=== PATIENT | male | born 1935 | race Caucasian/White ===

== ENCOUNTER → 2017-07-17 | Outpatient (CLI) | payer MEDICARE ==
[~2017-07-17] MED LIST: DICL100G3 TOP; DOCU-416 PO; DOXA1TAB38 PO; FLU IM; HYDR-385 PO; LAN30PT PO; MALOXICAM PO; MELO-205 PO; MELO-207 PO; PER PO; SPIR25TA78 PO; [UNRECOGNIZED DRUG - OTHER] PO; [UNRECOGNIZED DRUG - OTHER] PO
== END ==
LOC: LAB 15:54
PROVIDERS: ATTEND Surgery
DX: D04.22 Carcinoma in situ of skin of left ear and external auricular canal (principal)
CPT/HCPCS: 88305

== ENCOUNTER 2018-03-13 16:03 | Emergency (ER) | payer MEDICARE ==
[~2018-03-13 16:03] MED LIST changes: -OMEP-125 PO
[2018-03-13] MEDS ORDERED: NS(*) 0.9% 1000 ML BAG 1,000 ML IV ONE ×2 (16:12)
[2018-03-13] MEDS ORDERED: ONDANSETRON 4 MG/2 ML VIAL IVP ONE (16:15)
--- NOTE | 2018-03-13 16:15 | ER Report ---
History and Physical Time Seen By MD: 16:13 (JAGJIT BRUSH MD) HPI/ROS CHIEF COMPLAINT: Diarrhea and vomiting HISTORY OF PRESENT ILLNESS: Otherwise healthy 2-year-old male comes emergency Department today with multiple episodes diarrhea started about 2:30 this morning he said several episodes of loose stool nonbloody also he had 2 episodes of emesis both nonbloody and nonbilious. Patient states that for the last day or so easily less in the last 24 hours she did have macaroni and cheese dinner last night has no current abdominal pain but had some cramping associated with the vomiting and the diarrhea patient is a chest pain shortness of breath patient has no REVIEW OF SYSTEMS: Respiratory: No cough, no dyspnea. Cardiovascular: No chest pain, no palpitations. Gastrointestinal: Without abdominal pain Musculoskeletal: No back pain. Remainder of the 14 system rev: Yes (JAGJIT BRUSH MD) Allergies: Coded Allergies: No Known Drug Allergies (Unverified , 03/13/18) Home Meds Active Scripts Meloxicam (MELOXICAM) 15 Mg Tablet, 1 TAB PO QDAY, #90 TAB 3 Refills Prov:SANTOS KING MD 03/23/14 Reported Medications Omeprazole (OMEPRAZOLE) 20 Mg Capsule.dr, 1 CAP PO QDAY, CAP 03/13/18 Spironolactone (SPIRONOLACTONE) 25 Mg Tablet, 12.5 MG PO QDAY, TAB 03/13/18 Discontinued Reported Medications Lansoprazole (PREVACID) 30 Mg Capsule.dr, 30 MG PO HS 01/14/13 Discontinued Scripts Doxazosin Mesylate (DOXAZOSIN MESYLATE) 1 Mg Tablet, 2 MG PO QHS, #90 TAB Prov:FAITH VILLANUEVA APRN [facility] 09/30/14 Reviewed Nurses Notes: Yes Old Medical Records Reviewed: Yes (JAGJIT BRUSH MD) Hx Smoking: No Smoking Status: Former Smoker Exposure to Second Hand Smoke?: No Hx Substance Use Disorder: No 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) (JAGJIT BRUSH MD) Constitutional Vital Sign - Last 24 Hours 03/13/18 03/13/18 03/13/18 03/13/18 16:03 16:12 16:16 16:20 Temp 97.9 Pulse 77 67 Resp 14 B/P (MAP) 140/100 (113) 140/100 Pulse Ox 83 83 O2 Delivery Room Air Room Air O2 Flow Rate 2.0 03/13/18 03/13/18 03/13/18 03/13/18 16:33 16:43 16:48 17:00 Pulse 77 63 B/P (MAP) 163/83 (109) 153/79 (103) Pulse Ox 99 98 O2 Delivery Nasal Cannula Nasal Cannula O2 Flow Rate 2 2 03/13/18 03/13/18 03/13/18 03/13/18 17:18 17:23 17:30 18:05 Pulse 69 73 67 B/P (MAP) 159/84 (109) Pulse Ox 96 93 96 O2 Delivery Nasal Cannula Nasal Cannula Nasal Cannula O2 Flow Rate 2 2 2 03/13/18 03/13/18 03/13/18 03/13/18 18:30 18:35 18:40 18:55 Pulse 62 68 71 B/P (MAP) 159/76 (103) Pulse Ox 93 96 92 O2 Delivery Nasal Cannula Nasal Cannula Nasal Cannula O2 Flow Rate 2 2 2 03/13/18 03/13/18 19:00 19:10 Pulse 64 B/P (MAP) 161/76 (104) Pulse Ox 91 O2 Delivery Room Air Intake and Output 03/13/18 03/13/18 03/14/18 15:00 23:00 07:00 Intake Total 1000 ml Balance 1000 ml (MONSE BALLARD DO) Physical Exam General Appearance: [The patient is alert, has no immediate need for airway protection and no current signs of toxicity.] [ ] Eyes: Pupils equal and round no injection. Respiratory: Chest is non tender, lungs are clear to auscultation. Cardiac: regular rate and rhythm [ ] Gastrointestinal: Abdomen is soft and non tender, no masses, bowel sounds normal. Musculoskeletal: Neck: Neck is supple and non tender. Extremities have full range of motion and are non tender. Skin: No rashes or lesions. [ ] DIFFERENTIAL DIAGNOSIS: After history and physical exam differential diagnosis was considered for enteritis gastroenteritis stomach flu dehydration (JAGJIT BRUSH MD) Medical Decision Making Data Points Result Diagram: 03/13/18 1602 03/13/18 1602 Laboratory Hematology Test 03/13/18 00:00 03/13/18 16:02 Urine Color Yellow Urine Clarity Cloudy Urine pH 7.0 pH (4.8-9.5) Urine Specific [place] 1.030 Urine Protein Negative mg/dL (NEGATIVE) Urine Glucose (UA) Negative mg/dL (NEGATIVE) Urine Ketones Trace mg/dL (NEGATIVE) Urine Blood Negative (NEGATIVE) Urine Nitrite Negative (NEGATIVE) Urine Bilirubin Negative (NEGATIVE) Urine Urobilinogen Negative mg/dL (0.2-1.9) Urine Leukocyte Esterase Negative (NEGATIVE) Urine RBC <1 /HPF (0-2/HPF) Urine WBC None /HPF (0-5/HPF) Urine Squamous Epithelial Cells None /LPF (</=FEW) Urine Amorphous Crystals Few /HPF Urine Bacteria Negative /HPF (NONE-FEW) Urine Mucus None /HPF (NONE-FEW) Red Blood Count 5.03 M/uL (4.00-5.60) Mean Corpuscular Volume 92.6 fL (80.0-96.0) Mean Corpuscular Hemoglobin 31.1 pg (26.0-33.0) Mean Corpuscular Hemoglobin Concent 33.6 g/dL (32.0-36.0) Red Cell Distribution Width 14.7 % (11.5-14.5) Mean Platelet Volume 7.5 fL (7.2-11.1) Neutrophils (%) (Auto) 87.0 % (39.4-72.5) Lymphocytes (%) (Auto) 6.9 % (17.6-49.6) Monocytes (%) (Auto) 5.9 % (4.1-12.4) Eosinophils (%) (Auto) 0.0 % (0.4-6.7) Basophils (%) (Auto) 0.2 % (0.3-1.4) Nucleated RBC Relative Count (auto) 0.1 /100WBC Neutrophils # (Auto) 8.1 K/uL (2.0-7.4) Lymphocytes # (Auto) 0.6 K/uL (1.3-3.6) Monocytes # (Auto) 0.6 K/uL (0.3-1.0) Eosinophils # (Auto) 0.0 K/uL (0.0-0.5) Basophils # (Auto) 0.0 K/uL (0.0-0.1) Nucleated RBC Absolute Count (auto) 0.01 K/uL Sodium Level 128 mmol/L (137-145) Potassium Level 4.5 mmol/L (3.5-5.0) Chloride Level 91 mmol/L (98-107) Carbon Dioxide Level 27 mmol/L (22-30) Blood Urea Nitrogen 15 mg/dl (9-21) Creatinine 1.20 mg/dl (0.66-1.25) Glomerular Filtration Rate Calc 58.0 Random Glucose 152 mg/dl (75-110) Calcium Level 9.1 mg/dl (8.4-10.2) Total Bilirubin 0.9 mg/dl (0.2-1.3) Aspartate Amino Transf (AST/SGOT) 28 U/L (0-35) Alanine Aminotransferase (ALT/SGPT) 24 U/L (0-56) Alkaline Phosphatase 107 U/L (0-126) B-Type Natriuretic Peptide 42 pg/ml (0-100) Total Protein 7.0 g/dl (6.3-8.2) Albumin 4.3 g/dl (3.5-5.0) Lipase 86 U/L (23-300) Chemistry Test 03/13/18 00:00 03/13/18 16:02 Urine Color Yellow Urine Clarity Cloudy Urine pH 7.0 pH (4.8-9.5) Urine Specific [place] 1.030 Urine Protein Negative mg/dL (NEGATIVE) Urine Glucose (UA) Negative mg/dL (NEGATIVE) Urine Ketones Trace mg/dL (NEGATIVE) Urine Blood Negative (NEGATIVE) Urine Nitrite Negative (NEGATIVE) Urine Bilirubin Negative (NEGATIVE) Urine Urobilinogen Negative mg/dL (0.2-1.9) Urine Leukocyte Esterase Negative (NEGATIVE) Urine RBC <1 /HPF (0-2/HPF) Urine WBC None /HPF (0-5/HPF) Urine Squamous Epithelial Cells None /LPF (</=FEW) Urine Amorphous Crystals Few /HPF Urine Bacteria Negative /HPF (NONE-FEW) Urine Mucus None /HPF (NONE-FEW) White Blood Count 9.4 k/uL (4.5-11.0) Red Blood Count 5.03 M/uL (4.00-5.60) Hemoglobin 15.6 g/dL (14.0-18.0) Hematocrit 46.6 % (42.0-52.0) Mean Corpuscular Volume 92.6 fL (80.0-96.0) Mean Corpuscular Hemoglobin 31.1 pg (26.0-33.0) Mean Corpuscular Hemoglobin Concent 33.6 g/dL (32.0-36.0) Red Cell Distribution Width 14.7 % (11.5-14.5) Platelet Count 278 K/uL (150-450) Mean Platelet Volume 7.5 fL (7.2-11.1) Neutrophils (%) (Auto) 87.0 % (39.4-72.5) Lymphocytes (%) (Auto) 6.9 % (17.6-49.6) Monocytes (%) (Auto) 5.9 % (4.1-12.4) Eosinophils (%) (Auto) 0.0 % (0.4-6.7) Basophils (%) (Auto) 0.2 % (0.3-1.4) Nucleated RBC Relative Count (auto) 0.1 /100WBC Neutrophils # (Auto) 8.1 K/uL (2.0-7.4) Lymphocytes # (Auto) 0.6 K/uL (1.3-3.6) Monocytes # (Auto) 0.6 K/uL (0.3-1.0) Eosinophils # (Auto) 0.0 K/uL (0.0-0.5) Basophils # (Auto) 0.0 K/uL (0.0-0.1) Nucleated RBC Absolute Count (auto) 0.01 K/uL Glomerular Filtration Rate Calc 58.0 Calcium Level 9.1 mg/dl (8.4-10.2) Total Bilirubin 0.9 mg/dl (0.2-1.3) Aspartate Amino Transf (AST/SGOT) 28 U/L (0-35) Alanine Aminotransferase (ALT/SGPT) 24 U/L (0-56) Alkaline Phosphatase 107 U/L (0-126) B-Type Natriuretic Peptide 42 pg/ml (0-100) Total Protein 7.0 g/dl (6.3-8.2) Albumin 4.3 g/dl (3.5-5.0) Lipase 86 U/L (23-300) Urinalysis Test 03/13/18 00:00 Urine Color Yellow Urine Clarity Cloudy Urine pH 7.0 pH (4.8-9.5) Urine Specific [place] 1.030 Urine Protein Negative mg/dL (NEGATIVE) Urine Glucose (UA) Negative mg/dL (NEGATIVE) Urine Ketones Trace mg/dL (NEGATIVE) Urine Blood Negative (NEGATIVE) Urine Nitrite Negative (NEGATIVE) Urine Bilirubin Negative (NEGATIVE) Urine Urobilinogen Negative mg/dL (0.2-1.9) Urine Leukocyte Esterase Negative (NEGATIVE) Urine RBC <1 /HPF (0-2/HPF) Urine WBC None /HPF (0-5/HPF) Urine Squamous Epithelial Cells None /LPF (</=FEW) Urine Amorphous Crystals Few /HPF Urine Bacteria Negative /HPF (NONE-FEW) Urine Mucus None /HPF (NONE-FEW) (MONSE BALLARD DO) EKG/Imaging Imaging Results: CT scan of the abdomen and pelvis was obtained. The results of the study are ABDOMEN/PELVIS WITH CONTRAST History: 82-year-old male with abdominal pain.. Technique: CT images were obtained through the abdomen and pelvis with intravenous contrast using: Isovue-370 75 mls. Coronal and sagittal reformations were then created. One of the following dose optimization techniques was utilized in the performance of this exam: Automated exposure control; adjustment of the mA and/or kV according to the patient's size; or use of an iterative reconstruction technique. Specific details can be referenced in the facility's radiology CT exam operational policy. Comparison study: None Findings: Lung bases: There is mild passive atelectasis. Hepatobiliary: There is no finding of focal lesion in the liver to suggest metastatic disease. The gallbladder is unremarkable and there is no gallstone disease or biliary ductal dilatation. There is no hepatic or portal vein thrombosis. Spleen: Negative. Adrenals: Negative Pancreas: There is fatty infiltration of the pancreas but there is no ductal dilatation and there is no pancreatic mass or calculus.. Kidneys/genitourinary/retroperitoneum: There are no findings of hydronephrosis or nephrolithiasis. There is no retroperitoneal lymphadenopathy. Bowel/peritoneum/mesentery: There is a normal appendix in the right lower quadrant. There are scattered diverticula throughout the colon particularly in the sigmoid colon, but there are no findings of diverticulitis. There are no dilated loops of small bowel. Pelvic/genital urinary: The bladder is unremarkable. The prostate is mildly enlarged. There is no inguinal hernia. Vessels: There is diffuse aphthous chronic calcification.. Lymph node: There are no findings of lymphadenopathy. Body wall/bones: There is no vertebral body compression fracture. IMPRESSION: 1. No findings to explain this patient's abdominal pain. 2. Normal gallbladder and kidneys. 3. Mild BPH. 4. Diverticulosis throughout the colon and particularly in the sigmoid colon but there are no findings of diverticulitis. The study was read by the radiologist. I viewed the images myself on the PACS system. (MONSE BALLARD DO) ED Course/Re-evaluation ED Course ED clinical course medical decision making 82-year-old male comes in with less than 12 hours of diarrhea and several emesis patient labs are normal chest x-ray and KUB were also normal gait Amenta maximally and 2 L of fluid and feels significantly better no obvious overt signs of clinical pathology noted other than a most likely a viral gastroenteritis with treated accordingly give him by mouth antibiotic or by mouth antibiotics and have him follow primary care Decision to Disposition Date: Mar 13, 2018 Decision to Disposition Time: 17:29 (JAGJIT BRUSH MD) Clinical Indication for ER IV: Hydration, IV Access ED Course Care was assumed at shift change from Dr. Brush with a diagnostic CT pending of abdomen and pelvis. Patient with acute abdominal pain, vomiting and diarrhea. The CT scan was unremarkable for any pathology. Results are discussed with the patient. He is advised a clear liquid diet, to rest his bowels for several days. He's advised to advance to the brat diet. He is offered medication Zofran to control his nausea and vomiting. He is advised ibuprofen and Tylenol for pain relief. Patient's advised to follow-up with primary care if unimproved in 3-5 days. Decision to Disposition Date: Mar 13, 2018 Decision to Disposition Time: 18:40 (MONSE BALLARD DO) Depart Departure Latest Vital Signs Vital Signs Date Time Temp Pulse Resp B/P (MAP) Pulse Ox O2 Delivery O2 Flow Rate FiO2 03/13/18 19:10 64 91 Room Air 03/13/18 19:00 161/76 (104) 03/13/18 18:55 2 03/13/18 16:16 97.9 14 (MONSE BALLARD DO) Impression: Primary Impression: Enteritis Condition: Improved Disposition: HOME OR SELF-CARE Referrals: FAITH VILLANUEVA APRN [facility] Patient Instructions: Acute Diarrhea (ED), Clear Liquid Diet (ED) Additional Instructions: Use Tylenol and ibuprofen as needed for pain relief The CAT scan of your abdomen and pelvis did not show any pathology to explain the diarrhea Follow clear liquid diet for 24-48 hours, then advance to [place] diet, bananas, rice, applesauce and toast Follow-up with your primary care if unimproved in 3-5 days Return to the ER for any worsening JAGJIT BRUSH MD Mar 13, 2018 16:15 MONSE BALLARD DO Mar 13, 2018 18:41
[2018-03-13] MEDS ORDERED: SPIR25TA80 PO (16:16)
[2018-03-13] MEDS ORDERED: OMEP-125 PO (16:19)
[2018-03-13 16:21] LABS: PLATELET COUNT, AUTOMATED 278 K/uL (150-450)
--- NOTE | 2018-03-13 16:50 | RADIOLOGY IMAGING REPORT ---
FACILITY: [facility] - [place] PATIENT NAME: Gabriel Soto : 1935 MR: [id number] V: [id number] EXAM DATE: ORDERING PHYSICIAN: JAGJIT BRUSH TECHNOLOGIST: Location: [facility] Patient: Gabriel Soto : 1935 Visit/Account:[id number] Date of Sevice: 03/13/2018 Exam type: KUB SINGLE VIEW ABDOMEN History: Abdomen pain and diarrhea Comparison: None. Findings: Bowel gas pattern is nonspecific. There is no gross evidence of organomegaly or pathologic intra-abd ominal calcifications. There is a dextroconvex scoliosis of lumbar spine with extensive spondylotic changes. Mild degenerative changes of both hip joints also noted IMPRESSION: 1. Nonspecific bowel gas pattern Report Dictated By: Miya Melton MD at 03/13/2018 4:45 PM Report E-Signed By: Miya Melton MD at 03/13/2018 4:47 PM WSN:[email or web address]
--- NOTE | 2018-03-13 16:50 | RADIOLOGY IMAGING REPORT ---
FACILITY: [facility] PATIENT NAME: Gabriel Soto : 1935 MR: [id number] V: [id number] EXAM DATE: ORDERING PHYSICIAN: JAGJIT BRUSH TECHNOLOGIST: Location: [facility] Patient: Gabriel Soto : 1935 Visit/Account:[id number] Date of Sevice: 03/13/2018 Exam type: CHEST PA AND LAT History: Abdomen pain and diarrhea Comparison: July 19, 2016. Findings: Again noted is hyperinflation of the lung toscano. There is no evidence of focal infiltrates, pleural effusions or pulmonary edema. The cardiac silhouette is normal in size. The trachea is midline. IMPRESSION: 1. There is hyperinflation of the lung toscano although no evidence of acute pulmonary consolidation Report Dictated By: Miya Melton MD at 03/13/2018 4:44 PM Report E-Signed By: Miya Melton MD at 03/13/2018 4:45 PM WSN:[id number]
[2018-03-13] MEDS ORDERED: IOPAMIDOL 76% 75 ML INFUS BTL 75 ML ONE (17:45)
--- NOTE | 2018-03-13 18:31 | RADIOLOGY IMAGING REPORT ---
FACILITY: [facility] - [place] PATIENT NAME: Gabriel Soto : 1935 MR: [id number] V: [id number] EXAM DATE: ORDERING PHYSICIAN: JAGJIT BRUSH TECHNOLOGIST: Location: [facility] - [place] Patient: Gabriel Soto : 1935 Visit/Account:[id number] Date of Sevice: 03/13/2018 ABDOMEN/PELVIS WITH CONTRAST History: 82-year-old male with abdominal pain.. Technique: CT images were obtained through the abdomen and pelvis with intravenous contrast using: I sovue-370 75 mls. Coronal and sagittal reformations were then created. One of the following dose optimization techniques was utilized in the performance of this exam: Autom ated exposure control; adjustment of the mA and/or kV according to the patient's size; or use of an i terative reconstruction technique. Specific details can be referenced in the facility's radiology C T exam operational policy. Comparison study: None Findings: Lung bases: There is mild passive atelectasis. Hepatobiliary: There is no finding of focal lesion in the liver to suggest metastatic disease. The ga llbladder is unremarkable and there is no gallstone disease or biliary ductal dilatation. There is no hepatic or portal vein thrombosis. Spleen: Negative. Adrenals: Negative Pancreas: There is fatty infiltration of the pancreas but there is no ductal dilatation and there is no pancreatic mass or calculus.. Kidneys/genitourinary/retroperitoneum: There are no findings of hydronephrosis or nephrolithiasis. Th ere is no retroperitoneal lymphadenopathy. Bowel/peritoneum/mesentery: There is a normal appendix in the right lower quadrant. There are scatter ed diverticula throughout the colon particularly in the sigmoid colon, but there are no findings of d iverticulitis. There are no dilated loops of small bowel. Pelvic/genital urinary: The bladder is unremarkable. The prostate is mildly enlarged. There is no ing uinal hernia. Vessels: There is diffuse aphthous chronic calcification.. Lymph node: There are no findings of lymphadenopathy. Body wall/bones: There is no vertebral body compression fracture. IMPRESSION: 1. No findings to explain this patient's abdominal pain. 2. Normal gallbladder and kidneys. 3. Mild BPH. 4. Diverticulosis throughout the colon and particularly in the sigmoid colon but there are no finding s of diverticulitis. Report Dictated By: Benigno Viera MD at 03/13/2018 6:18 PM Report E-Signed By: Benigno Viera MD at 03/13/2018 6:27 PM WSN:[id number]
[2018-03-13 19:00] VITALS: BP 161/76
== END 2018-03-13 19:41 | disposition home or self-care (01) ==
LOC: ER 16:06
DX: K52.9 Noninfective gastroenteritis and colitis, unspecified (principal)
CPT/HCPCS: 71046; 74018; 74177; 81001; 83690; 83880; 85025; 96361; 96374; 99284; J2405; J7030; Q9967; 82040; 82247; 82310; 82374; 82435; 82565; 82947; 84075; 84132; 84155; 84295; 84450; 84460; 84520

== ENCOUNTER → 2018-03-13 | Outpatient (CLI) | payer MEDICARE ==
[~2018-03-13] MED LIST changes: +OMEP-125 PO; -SPIR25TA78 PO; +SPIR25TA80 PO
== END ==
LOC: AMB 15:46
PROVIDERS: ATTEND Nurse Practitioner
DX: R53.1 Weakness (principal); R10.30 Lower abdominal pain, unspecified; R19.7 Diarrhea, unspecified
CPT/HCPCS: A0425; A0427

== ENCOUNTER 2018-04-25 16:41 | Emergency (ER) | payer MEDICARE ==
[~2018-04-25 16:41] MED LIST changes: +OMEP-125 PO
--- NOTE | 2018-04-25 16:47 | ER Report ---
History and Physical Time Seen By MD: 16:47 HPI/ROS CHIEF COMPLAINT: Abdominal pain, diarrhea HISTORY OF PRESENT ILLNESS: 82-year-old male patient presents to the emergency room with complaint of abdominal pain with diarrhea. Patient states that he has had this for the past several weeks. He states today the pain became worse. Patient states that the pain seems to more on the right side. He states that he's been having diarrhea daily for the past several weeks up to 2 months. He denies having any fevers, chills, nausea or vomiting. Patient states that he often times have to fountain to the bathroom. He states that he is seen for this in the past. He states that he is not improved since then. REVIEW OF SYSTEMS: Respiratory: No cough, no dyspnea. Cardiovascular: No chest pain, no palpitations. Gastrointestinal: As noted above Musculoskeletal: No back pain. Allergies: Coded Allergies: No Known Drug Allergies (Unverified , 04/25/18) Home Meds Active Scripts Ciprofloxacin Hcl 500 Mg Tab (CIPRO 500 MG TAB) 500 Mg Tablet, 500 MG PO BID for 5 Days, #10 TAB Prov:JERILYN EDUARDO 04/25/18 Meloxicam (MELOXICAM) 15 Mg Tablet, 1 TAB PO QDAY, #90 TAB 3 Refills Prov:SANTOS KING MD 03/23/14 Reported Medications Spironolactone (SPIRONOLACTONE) 25 Mg Tablet, 50 MG PO QDAY, TAB 03/13/18 Discontinued Reported Medications Omeprazole (OMEPRAZOLE) 20 Mg Capsule.dr, 1 CAP PO QDAY, CAP 03/13/18 Past Medical/Surgical History Patient has a past medical history of hypertension, home oxygen, emphysema, COPD, reflux, prostate problems, arthritis, fractures, alcohol use. Patient has a surgical history of back surgery, leg surgery, shoulder surgery tonsillectomy area Patient has a family medical history of CAD, stroke. 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 B/P (MAP) 128/85 (99) Pulse Ox 91 04/25/18 04/25/18 04/25/18 04/25/18 17:16 17:21 17:26 17:30 Pulse ??? 57 53 Resp 24 B/P (MAP) 121/85 (97) Pulse Ox 96 98 04/25/18 04/25/18 04/25/18 04/25/18 17:31 17:36 17:41 17:46 Pulse 57 ? Pulse Ox 97 98 04/25/18 04/25/18 04/25/18 04/25/18 17:51 17:56 18:00 18:01 Pulse ??? 63 65 Resp 9 12 B/P (MAP) 127/92 (104) Pulse Ox 98 99 04/25/18 04/25/18 04/25/18 04/25/18 18:06 18:11 18:16 18:21 Pulse 62 65 69 68 Resp 24 13 24 17 Pulse Ox 99 99 97 99 04/25/18 04/25/18 04/25/18 18:26 18:36 19:20 Pulse 67 69 Resp 27 25 Pulse Ox 97 90 O2 Flow Rate 4.0 Physical Exam General Appearance: The patient is alert, has no immediate need for airway protection and no current signs of toxicity. Respiratory: Chest is non tender, lungs are clear to auscultation. Cardiac: regular rate and rhythm Gastrointestinal: Abdomen is soft and non tender, no masses, bowel sounds normal. Musculoskeletal: Neck: Neck is supple and non tender. Extremities have full range of motion and are non tender. Skin: No rashes or lesions. DIFFERENTIAL DIAGNOSIS: After history and physical exam differential diagnosis was considered for viral enteritis, infectious enteritis, gas pains. Medical Decision Making Data Points Result Diagram: 04/25/18 1712 04/25/18 171 Laboratory Hematology Test 04/25/18 17:12 Red Blood Count 5.54 M/uL (4.00-5.60) Mean Corpuscular Volume 92.7 fL (80.0-96.0) Mean Corpuscular Hemoglobin 30.6 pg (26.0-33.0) Mean Corpuscular Hemoglobin Concent 33.0 g/dL (32.0-36.0) Red Cell Distribution Width 14.5 % (11.5-14.5) Mean Platelet Volume 7.7 fL (7.2-11.1) Neutrophils (%) (Auto) 76.4 % (39.4-72.5) Lymphocytes (%) (Auto) 13.7 % (17.6-49.6) Monocytes (%) (Auto) 7.6 % (4.1-12.4) Eosinophils (%) (Auto) 0.3 % (0.4-6.7) Basophils (%) (Auto) 2.0 % (0.3-1.4) Nucleated RBC Relative Count (auto) 0.1 /100WBC Neutrophils # (Auto) 4.7 K/uL (2.0-7.4) Lymphocytes # (Auto) 0.8 K/uL (1.3-3.6) Monocytes # (Auto) 0.5 K/uL (0.3-1.0) Eosinophils # (Auto) 0.0 K/uL (0.0-0.5) Basophils # (Auto) 0.1 K/uL (0.0-0.1) Nucleated RBC Absolute Count (auto) 0.01 K/uL Sodium Level 137 mmol/L (137-145) Potassium Level 3.9 mmol/L (3.5-5.0) Chloride Level 100 mmol/L (98-107) Carbon Dioxide Level 26 mmol/L (22-30) Blood Urea Nitrogen 20 mg/dl (9-21) Creatinine 1.30 mg/dl (0.66-1.25) Glomerular Filtration Rate Calc 52.9 Random Glucose 121 mg/dl (75-110) Calcium Level 9.5 mg/dl (8.4-10.2) Total Bilirubin 0.9 mg/dl (0.2-1.3) Aspartate Amino Transf (AST/SGOT) 25 U/L (0-35) Alanine Aminotransferase (ALT/SGPT) 23 U/L (0-56) Alkaline Phosphatase 110 U/L (0-126) Total Protein 7.5 g/dl (6.3-8.2) Albumin 4.6 g/dl (3.5-5.0) Amylase Level 43 U/L (0-110) Lipase 41 U/L (23-300) Helicobacter pylori IgG Antibody Negative (NEGATIVE) Chemistry Test 04/25/18 17:12 White Blood Count 6.1 k/uL (4.5-11.0) Red Blood Count 5.54 M/uL (4.00-5.60) Hemoglobin 16.9 g/dL (14.0-18.0) Hematocrit 51.4 % (42.0-52.0) Mean Corpuscular Volume 92.7 fL (80.0-96.0) Mean Corpuscular Hemoglobin 30.6 pg (26.0-33.0) Mean Corpuscular Hemoglobin Concent 33.0 g/dL (32.0-36.0) Red Cell Distribution Width 14.5 % (11.5-14.5) Platelet Count 255 K/uL (150-450) Mean Platelet Volume 7.7 fL (7.2-11.1) Neutrophils (%) (Auto) 76.4 % (39.4-72.5) Lymphocytes (%) (Auto) 13.7 % (17.6-49.6) Monocytes (%) (Auto) 7.6 % (4.1-12.4) Eosinophils (%) (Auto) 0.3 % (0.4-6.7) Basophils (%) (Auto) 2.0 % (0.3-1.4) Nucleated RBC Relative Count (auto) 0.1 /100WBC Neutrophils # (Auto) 4.7 K/uL (2.0-7.4) Lymphocytes # (Auto) 0.8 K/uL (1.3-3.6) Monocytes # (Auto) 0.5 K/uL (0.3-1.0) Eosinophils # (Auto) 0.0 K/uL (0.0-0.5) Basophils # (Auto) 0.1 K/uL (0.0-0.1) Nucleated RBC Absolute Count (auto) 0.01 K/uL Glomerular Filtration Rate Calc 52.9 Calcium Level 9.5 mg/dl (8.4-10.2) Total Bilirubin 0.9 mg/dl (0.2-1.3) Aspartate Amino Transf (AST/SGOT) 25 U/L (0-35) Alanine Aminotransferase (ALT/SGPT) 23 U/L (0-56) Alkaline Phosphatase 110 U/L (0-126) Total Protein 7.5 g/dl (6.3-8.2) Albumin 4.6 g/dl (3.5-5.0) Amylase Level 43 U/L (0-110) Lipase 41 U/L (23-300) Helicobacter pylori IgG Antibody Negative (NEGATIVE) EKG/Imaging Imaging CT abdomen and pelvis with IV contrast Indication: Abdominal pain. Diarrhea. Comparison: 03/13/2018.. Technique: Axial CT images were obtained through the abdomen and pelvis during injection of nonionic iodinated intravenous contrast. Reformatted coronal and sagittal images were also obtained. One of the following dose optimization techniques was utilized in the performance of this exam: Automated exposure control; adjustment of the mA and/or kV according to the patient's size; or use of an iterative reconstruction technique. Specific details can be referenced in the facility's radiology CT exam operational policy. Contrast: 75 ml of Isovue-370 IV contrast. Findings: Lower lung toscano: Limited views lower lung field are unremarkable. Liver: No solid lesions. The left lobe does show a stable 1.8 cm cyst. The vasculature appears patent. Biliary: Gallbladder appears unremarkable as well as the intra and extra hepatic biliary system. Pancreas: No focal abnormality. Spleen: Normal appearance. Adrenal glands: Unremarkable. Kidneys / retroperitoneum: No evidence of nephrolithiasis or hydronephrosis. No focal abnormality. Bowel / peritoneum / mesenteries: Sigmoid diverticula without pericolonic in flammation. Colon shows no other focal abnormality. The appendix is normal. The small bowel shows no focal normality or obstruction. Stomach is decompressed and grossly normal. No free air, free fluid, fluid collections or areas of inflammation. Small bilateral inguinal hernias containing fat. Lymph node assessment: No pathologic adenopathy identified. Pelvic structures: Appear unremarkable. Vessels: Mild atherosclerotic calcifications seen throughout a nonaneurysmal abdominal aorta and branches. Musculoskeletal / Body wall: No acute or aggressive osseous abnormality. Degenerative changes of the spine. Rightward convexity lumbar spine. IMPRESSION: 1. No acute intra-abdominal abnormality 2. Other stable chronic findings as above. Report Dictated By: Max Roca at 04/25/2018 5:59 PM Report E-Signed By: Max Roca at 04/25/2018 6:07 PM 2 VIEWS CHEST INDICATION: Low oxygen saturation. Abdominal pain. COMPARISON: 03/12/2018. FINDINGS: Cardiomediastinal silhouette and pulmonary vessels within normal limits. There is no focal infiltrate or lobar consolidation. There is no pneumothorax or pleural effusion. No nodule. Upper abdomen is unremarkable. No acute bony abnormality. IMPRESSION: 1. No acute cardiopulmonary process. Report Dictated By: Max Roca at 04/25/2018 5:53 PM Report E-Signed By: Max Roca at 04/25/2018 5:55 PM ED Course/Re-evaluation ED Course Patient patient was History is obtained. Differential diagnoses were considered. On examination lungs are clear, heart is regular, abdomen soft tender to palpation. Patient seemed to have more pain on the upper abdomen. A CBC, CMP, CT scan of the abdomen and pelvis was done. I did want had stool samples. However the patient was not able to give a stool specimen. Lab results and imaging results were negative. I discussed the findings with the patient. With this going on for 2 months now I do have concerns about a possible infectious etiology. If this was viral I would have expected that it would've clear. However we will go ahead and treat him with ciprofloxacin twice a day. We will also have him hold off starting antibiotic and we stools. The stool sample results should be sent to his primary care provider I discussed results make changes to the treatment if necessary. Patient and his granddaughter verbalized understanding and agreement. Decision to Disposition Date: Apr 25, 2018 Decision to Disposition Time: 19:25 Depart Departure Latest Vital Signs Vital Signs Date Time Temp Pulse Resp B/P (MAP) Pulse Ox O2 Delivery O2 Flow Rate FiO2 04/25/18 19:20 4.0 04/25/18 18:36 69 25 90 04/25/18 18:00 127/92 (104) 04/25/18 16:51 Nasal Cannula 04/25/18 16:46 97.5 Impression: Primary Impression: Enteritis Condition: Improved Disposition: HOME OR SELF-CARE Referrals: DUDLEY PARR PA-C (PCP) New Scripts Ciprofloxacin Hcl 500 Mg Tab (CIPRO 500 MG TAB) 500 Mg Tablet 500 MG PO BID for 5 Days, #10 TAB Prov: JERILYN EDUARDO 04/25/18 Patient Instructions: Enteritis (ED) Additional Instructions: With this going on as long as it has been, I think that we need to treat with antibioitcs. Follow up with Dudley Parr in the early part of next week. Please take the antibiotics after we have obtained the samples. Return to the ER if condition worsens. Get plenty of rest. Increase fluid intake. JERILYN EDUARDO Apr 25, 2018 16:47
[2018-04-25] MEDS ORDERED: NS(*) 0.9% 1000 ML BAG 1,000 ML IV ONE (16:59)
[2018-04-25] MEDS ORDERED: IOPAMIDOL 76% 75 ML INFUS BTL 75 ML ONE (17:13)
[2018-04-25 17:24] LABS: PLATELET COUNT, AUTOMATED 255 K/uL (150-450)
--- NOTE | 2018-04-25 17:58 | RADIOLOGY IMAGING REPORT ---
FACILITY: [facility] - [place] PATIENT NAME: Gabriel Soto : 1935 MR: [id number] V: [id number] EXAM DATE: ORDERING PHYSICIAN: JERILYN EDUARDO TECHNOLOGIST: Location: [facility] - [place] Patient: Gabriel Soto : 1935 Visit/Account:[id number] Date of Sevice: 04/25/2018 2 VIEWS CHEST INDICATION: Low oxygen saturation. Abdominal pain. COMPARISON: 03/12/2018. FINDINGS: Cardiomediastinal silhouette and pulmonary vessels within normal limits. There is no focal infiltrate or lobar consolidation. There is no pneumothorax or pleural effusion. No nodule. Upper abdomen is unremarkable. No acute bony abnormality. IMPRESSION: 1. No acute cardiopulmonary process. Report Dictated By: Max Roca at 04/25/2018 5:53 PM Report E-Signed By: Max Roca at 04/25/2018 5:55 PM WSN:[id number]
[2018-04-25 18:00] VITALS: BP 127/92
--- NOTE | 2018-04-25 18:10 | RADIOLOGY IMAGING REPORT ---
FACILITY: [facility] PATIENT NAME: Gabriel Soto : 1935 MR: [id number] V: [id number] EXAM DATE: ORDERING PHYSICIAN: JERILYN EDUARDO TECHNOLOGIST: Location: [facility] Patient: Gabriel Soto : 1935 Visit/Account:[id number] Date of Sevice: 04/25/2018 CT abdomen and pelvis with IV contrast Indication: Abdominal pain. Diarrhea. Comparison: 03/13/2018.. Technique: Axial CT images were obtained through the abdomen and pelvis during injection of nonioni c iodinated intravenous contrast. Reformatted coronal and sagittal images were also obtained. One of the following dose optimization techniques was utilized in the performance of this exam: Autom ated exposure control; adjustment of the mA and/or kV according to the patient's size; or use of an i terative reconstruction technique. Specific details can be referenced in the facility's radiology C T exam operational policy. Contrast: 75 ml of Isovue-370 IV contrast. Findings: Lower lung toscano: Limited views lower lung field are unremarkable. Liver: No solid lesions. The left lobe does show a stable 1.8 cm cyst. The vasculature appears patent . Biliary: Gallbladder appears unremarkable as well as the intra and extra hepatic biliary system. Pancreas: No focal abnormality. Spleen: Normal appearance. Adrenal glands: Unremarkable. Kidneys / retroperitoneum: No evidence of nephrolithiasis or hydronephrosis. No focal abnormality. Bowel / peritoneum / mesenteries: Sigmoid diverticula without pericolonic inflammation. Colon shows n o other focal abnormality. The appendix is normal. The small bowel shows no focal normality or obstru ction. Stomach is decompressed and grossly normal. No free air, free fluid, fluid collections or areas of inflammation. Small bilateral inguinal hernias containing fat. Lymph node assessment: No pathologic adenopathy identified. Pelvic structures: Appear unremarkable. Vessels: Mild atherosclerotic calcifications seen throughout a nonaneurysmal abdominal aorta and bran ches. Musculoskeletal / Body wall: No acute or aggressive osseous abnormality. Degenerative changes of the spine. Rightward convexity lumbar spine. IMPRESSION: 1. No acute intra-abdominal abnormality 2. Other stable chronic findings as above. Report Dictated By: Max Roca at 04/25/2018 5:59 PM Report E-Signed By: Max Roca at 04/25/2018 6:07 PM WSN:[id number]
[2018-04-25] MEDS ORDERED: SIMETHICONE 80 MG CHEW CHEW ONE (18:25)
[2018-04-25] MEDS ORDERED: CIPR-344 PO (19:24)
== END 2018-04-25 19:38 | disposition home or self-care (01) ==
LOC: ER 16:45
DX: K52.9 Noninfective gastroenteritis and colitis, unspecified (principal)
CPT/HCPCS: 82150; 83630; 83690; 85025; 86677; 87493; 96360; 96361; 99284; A9270; J7030; Q9967; 71046; 74177; 82040; 82247; 82310; 82374; 82435; 82565; 82947; 84075; 84132; 84155; 84295; 84450; 84460; 84520

== ENCOUNTER → 2018-04-26 | Outpatient (CLI) | payer MEDICARE ==
[~2018-04-26] MED LIST changes: +CIPR-344 PO
== END ==
LOC: LAB 10:34
PROVIDERS: ATTEND Nurse Practitioner Family
DX: R19.7 Diarrhea, unspecified (principal)

== ENCOUNTER 2018-05-15 16:11 | Emergency (ER) | payer MEDICARE ==
[2018-05-15 16:18] VITALS: BP 183/75
--- NOTE | 2018-05-15 16:18 | ER Report ---
History and Physical Time Seen By MD: 16:18 HPI/ROS CHIEF COMPLAINT: Nausea, vomiting, diarrhea HISTORY OF PRESENT ILLNESS: 82-year-old male patient presents to emergency room with complaint of nausea, vomiting diarrhea. Patient states this been going on all day. He states he woke up at 4:00 this morning with diarrhea. He states at that time he did take some Gas-X. He states that seemed to help until approximately 8:00 in the morning. He states from then until noon he had several bouts of diarrhea. States afternoon he has not had any other diarrhea. Patient states he's felt like he was going to throw up. He did vomit 1. Patient denies having any abdominal pain, fevers. Patient states he's not been able to eat a drink anything. Patient states that he's been seen multiple times in the ER for similar problems and felt like he should come in for further evaluation. Patient's was recently diagnosed with influenza. REVIEW OF SYSTEMS: Respiratory: No cough, no dyspnea. Cardiovascular: No chest pain, no palpitations. Gastrointestinal: As noted above Musculoskeletal: No back pain. Allergies: Coded Allergies: No Known Drug Allergies (Unverified , 04/25/18) Home Meds Active Scripts Ondansetron 4 Mg Odt (ONDANSETRON 4 MG ODT) 4 Mg Tab.rapdis, 4 MG PO Q6H PRN for NAUSEA/VOMITING, #20 TAB Prov:JERILYN EDUARDO [facility] 05/15/18 Ciprofloxacin Hcl 500 Mg Tab (CIPRO 500 MG TAB) 500 Mg Tablet, 500 MG PO BID for 5 Days, #10 TAB Prov:JERILYN EDUARDO [facility] 04/25/18 Meloxicam (MELOXICAM) 15 Mg Tablet, 1 TAB PO QDAY, #90 TAB 3 Refills Prov:SANTOS KING MD 03/23/14 Reported Medications Spironolactone (SPIRONOLACTONE) 25 Mg Tablet, 50 MG PO QDAY, TAB 03/13/18 Past Medical/Surgical History Patient has a past medical history of hypertension, emphysema, reflux, arthritis, FRACTURES, dentures, macular degeneration, alcohol abuse, depression. Patient has a surgical history of back surgery, left leg surgery, right shoulder surgery, left shoulder surgery, tonsillectomy. Patient has a family medical history of CAD, stroke. Reviewed Nurses Notes: Yes Hx Smoking: No Smoking Status: Former Smoker Exposure to Second Hand Smoke?: No Hx Substance Use Disorder: No 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) Constitutional Vital Sign - Last 24 Hours 05/15/18 05/15/18 05/15/18 05/15/18 16:11 16:17 16:18 16:31 Temp 98.3 Pulse ??? 73 60 Resp 16 B/P (MAP) 183/76 (111) 183/75 Pulse Ox 90 93 O2 Delivery Room Air 05/15/18 05/15/18 05/15/18 05/15/18 16:51 17:11 17:31 17:51 Pulse 57 66 82 59 Pulse Ox 86 90 90 93 05/15/18 05/15/18 17:56 18:11 Pulse 66 63 Pulse Ox 87 85 Physical Exam General Appearance: The patient is alert, has no immediate need for airway protection and no current signs of toxicity. Respiratory: Chest is non tender, lungs are clear to auscultation. Cardiac: regular rate and rhythm Gastrointestinal: Abdomen is distended and tender, no masses, bowel sounds are hyperactive. Musculoskeletal: Neck: Neck is supple and non tender. Extremities have full range of motion and are non tender. Skin: No rashes or lesions. DIFFERENTIAL DIAGNOSIS: After history and physical exam differential diagnosis was considered for nausea and vomiting including but not limited to gastroenteritis, gastritis, appendicitis, and medication side effect. Medical Decision Making Data Points Result Diagram: 05/15/18 1640 05/15/18 1640 Laboratory Hematology Test 05/15/18 16:40 05/15/18 18:49 Red Blood Count 5.40 M/uL (4.00-5.60) Mean Corpuscular Volume 93.1 fL (80.0-96.0) Mean Corpuscular Hemoglobin 31.1 pg (26.0-33.0) Mean Corpuscular Hemoglobin Concent 33.4 g/dL (32.0-36.0) Red Cell Distribution Width 14.9 % (11.5-14.5) Mean Platelet Volume 8.1 fL (7.2-11.1) Neutrophils (%) (Auto) 89.1 % (39.4-72.5) Lymphocytes (%) (Auto) 8.0 % (17.6-49.6) Monocytes (%) (Auto) 2.6 % (4.1-12.4) Eosinophils (%) (Auto) 0.0 % (0.4-6.7) Basophils (%) (Auto) 0.3 % (0.3-1.4) Nucleated RBC Relative Count (auto) 0.1 /100WBC Neutrophils # (Auto) 7.4 K/uL (2.0-7.4) Lymphocytes # (Auto) 0.7 K/uL (1.3-3.6) Monocytes # (Auto) 0.2 K/uL (0.3-1.0) Eosinophils # (Auto) 0.0 K/uL (0.0-0.5) Basophils # (Auto) 0.0 K/uL (0.0-0.1) Nucleated RBC Absolute Count (auto) 0.01 K/uL Sodium Level 136 mmol/L (137-145) Potassium Level 4.5 mmol/L (3.5-5.0) Chloride Level 99 mmol/L (98-107) Carbon Dioxide Level 21 mmol/L (22-30) Blood Urea Nitrogen 24 mg/dl (9-21) Creatinine 1.20 mg/dl (0.66-1.25) Glomerular Filtration Rate Calc 58.0 Random Glucose 145 mg/dl (75-110) Lactate 2.4 mmol/L (0.7-2.1) Calcium Level 9.4 mg/dl (8.4-10.2) Total Bilirubin 1.0 mg/dl (0.2-1.3) Aspartate Amino Transf (AST/SGOT) 27 U/L (0-35) Alanine Aminotransferase (ALT/SGPT) 21 U/L (0-56) Alkaline Phosphatase 104 U/L (0-126) Total Protein 7.0 g/dl (6.3-8.2) Albumin 4.4 g/dl (3.5-5.0) Lipase 74 U/L (23-300) Influenza Virus Type A (PCR) Negative (NEGATIVE) Influenza Virus Type B (PCR) Negative (NEGATIVE) Urine Color Yellow Urine Clarity Clear Urine pH 5.0 pH (4.8-9.5) Urine Specific [place] 1.041 Urine Protein 30 mg/dL (NEGATIVE) Urine Glucose (UA) Negative mg/dL (NEGATIVE) Urine Ketones 80 mg/dL (NEGATIVE) Urine Blood Negative (NEGATIVE) Urine Nitrite Negative (NEGATIVE) Urine Bilirubin Negative (NEGATIVE) Urine Urobilinogen Negative mg/dL (0.2-1.9) Urine Leukocyte Esterase Negative (NEGATIVE) Urine RBC 1 /HPF (0-2/HPF) Urine WBC 3 /HPF (0-5/HPF) Urine Squamous Epithelial Cells None /LPF (</=FEW) Urine Bacteria Negative /HPF (NONE-FEW) Urine Mucus Few /HPF (NONE-FEW) Chemistry Test 05/15/18 16:40 05/15/18 18:49 White Blood Count 8.3 k/uL (4.5-11.0) Red Blood Count 5.40 M/uL (4.00-5.60) Hemoglobin 16.8 g/dL (14.0-18.0) Hematocrit 50.3 % (42.0-52.0) Mean Corpuscular Volume 93.1 fL (80.0-96.0) Mean Corpuscular Hemoglobin 31.1 pg (26.0-33.0) Mean Corpuscular Hemoglobin Concent 33.4 g/dL (32.0-36.0) Red Cell Distribution Width 14.9 % (11.5-14.5) Platelet Count 274 K/uL (150-450) Mean Platelet Volume 8.1 fL (7.2-11.1) Neutrophils (%) (Auto) 89.1 % (39.4-72.5) Lymphocytes (%) (Auto) 8.0 % (17.6-49.6) Monocytes (%) (Auto) 2.6 % (4.1-12.4) Eosinophils (%) (Auto) 0.0 % (0.4-6.7) Basophils (%) (Auto) 0.3 % (0.3-1.4) Nucleated RBC Relative Count (auto) 0.1 /100WBC Neutrophils # (Auto) 7.4 K/uL (2.0-7.4) Lymphocytes # (Auto) 0.7 K/uL (1.3-3.6) Monocytes # (Auto) 0.2 K/uL (0.3-1.0) Eosinophils # (Auto) 0.0 K/uL (0.0-0.5) Basophils # (Auto) 0.0 K/uL (0.0-0.1) Nucleated RBC Absolute Count (auto) 0.01 K/uL Glomerular Filtration Rate Calc 58.0 Lactate 2.4 mmol/L (0.7-2.1) Calcium Level 9.4 mg/dl (8.4-10.2) Total Bilirubin 1.0 mg/dl (0.2-1.3) Aspartate Amino Transf (AST/SGOT) 27 U/L (0-35) Alanine Aminotransferase (ALT/SGPT) 21 U/L (0-56) Alkaline Phosphatase 104 U/L (0-126) Total Protein 7.0 g/dl (6.3-8.2) Albumin 4.4 g/dl (3.5-5.0) Lipase 74 U/L (23-300) Influenza Virus Type A (PCR) Negative (NEGATIVE) Influenza Virus Type B (PCR) Negative (NEGATIVE) Urine Color Yellow Urine Clarity Clear Urine pH 5.0 pH (4.8-9.5) Urine Specific [place] 1.041 Urine Protein 30 mg/dL (NEGATIVE) Urine Glucose (UA) Negative mg/dL (NEGATIVE) Urine Ketones 80 mg/dL (NEGATIVE) Urine Blood Negative (NEGATIVE) Urine Nitrite Negative (NEGATIVE) Urine Bilirubin Negative (NEGATIVE) Urine Urobilinogen Negative mg/dL (0.2-1.9) Urine Leukocyte Esterase Negative (NEGATIVE) Urine RBC 1 /HPF (0-2/HPF) Urine WBC 3 /HPF (0-5/HPF) Urine Squamous Epithelial Cells None /LPF (</=FEW) Urine Bacteria Negative /HPF (NONE-FEW) Urine Mucus Few /HPF (NONE-FEW) Urinalysis Test 05/15/18 18:49 Urine Color Yellow Urine Clarity Clear Urine pH 5.0 pH (4.8-9.5) Urine Specific [place] 1.041 Urine Protein 30 mg/dL (NEGATIVE) Urine Glucose (UA) Negative mg/dL (NEGATIVE) Urine Ketones 80 mg/dL (NEGATIVE) Urine Blood Negative (NEGATIVE) Urine Nitrite Negative (NEGATIVE) Urine Bilirubin Negative (NEGATIVE) Urine Urobilinogen Negative mg/dL (0.2-1.9) Urine Leukocyte Esterase Negative (NEGATIVE) Urine RBC 1 /HPF (0-2/HPF) Urine WBC 3 /HPF (0-5/HPF) Urine Squamous Epithelial Cells None /LPF (</=FEW) Urine Bacteria Negative /HPF (NONE-FEW) Urine Mucus Few /HPF (NONE-FEW) ED Course/Re-evaluation ED Course Patient was admitted to exam room, history and physical were obtained. Differential diagnoses were considered. On examination lungs were clear, heart was regular, abdomen was slightly tender, distended with hyperactive bowel sounds. On palpation of the abdomen that did cause patient become nauseated and vomit. A CBC, CMP, urinalysis were obtained. Patient was given 500 cc of normal saline. Patient had normal labs. Urinalysis was unremarkable. I discussed the findings with the patient and his granddaughter. We discussed doing imaging, however patient said that with previous imaging there is nothing found. I gallops that the last time that I had done imaging I did not find anything. I also explained to him that with his symptoms I did not expect to find anything today either. As result we decided that we would refrain from that. We did give the patient some water to see if he can tolerate that well. He is able to drink that without any difficulties. He had no nausea, no vomiting. Patient did have some persistent epigastric abdominal pain. We will go ahead and discharge him home at this time. Patient is to follow-up with Dr. Atwood or Dr. Yarbrough for further evaluation of his abdominal pain. Patient was given a prescription for Zofran to help with nausea and vomiting. Patient is to return to the emergency room if condition worsens. Patient and his granddaughter verbalized understanding and agreement with plan. Decision to Disposition Date: May 15, 2018 Decision to Disposition Time: 19:11 Depart Departure Latest Vital Signs Vital Signs Date Time Temp Pulse Resp B/P (MAP) Pulse Ox O2 Delivery O2 Flow Rate FiO2 05/15/18 18:11 63 85 05/15/18 16:18 98.3 16 183/75 Room Air Impression: Primary Impression: Gastroenteritis Condition: Improved Disposition: HOME OR SELF-CARE Referrals: DUDLEY PARR PA-C (PCP) JEANE YARBROUGH JOHN A MD New Scripts Ondansetron 4 Mg Odt (ONDANSETRON 4 MG ODT) 4 Mg Tab.rapdis 4 MG PO Q6H PRN for NAUSEA/VOMITING, #20 TAB Prov: JERILYN EDUARDO MARITZA 05/15/18 Patient Instructions: Gastroenteritis (ED) Additional Instructions: Increase fluid intake. Get plenty of rest. Take the Zofran as needed for nausea. Follow up with Dr. Yarbrough or Dr. Atwood for further work up for your abdominal pain. Return to the ER if condition worsens. JERILYN EDUARDO May 15, 2018 16:18
[2018-05-15] MEDS ORDERED: NS(*) 0.9% 500 ML BAG 500 ML IV ONE (16:30)
[2018-05-15] MEDS ORDERED: LIDOCAINE 2% VISC SLN 15ML UDC PO ONE (16:50)
[2018-05-15] MEDS ORDERED: MAG HYD/AL HYD/SIMETH 30ML UDC PO ONE (16:50)
[2018-05-15 16:53] LABS: PLATELET COUNT, AUTOMATED 274 K/uL (150-450)
[2018-05-15] MEDS ORDERED: ONDA4TAB9 PO (19:09)
== END 2018-05-15 19:29 | disposition home or self-care (01) ==
LOC: ER 16:26
DX: K52.9 Noninfective gastroenteritis and colitis, unspecified (principal); I10 Essential (primary) hypertension; Z87.891 Personal history of nicotine dependence
CPT/HCPCS: 81001; 83605; 83690; 85025; 87088; 87502; 96360; 99284; A9270; J7040; 82040; 82247; 82310; 82374; 82435; 82565; 82947; 84075; 84132; 84155; 84295; 84450; 84460; 84520

== ENCOUNTER 2018-06-05 01:15 | Day surgery (SDC) | payer MEDICARE ==
[~2018-06-05] VITALS: Ht 177.8 cm; Wt 72.6 kg
[~2018-06-05 01:15] MED LIST changes: +ONDA4TAB9 PO; +VIT1TABL33 PO
[2018-06-05] MEDS ORDERED: PROPOFOL EMUL(*) 10MG/ML 20 ML 20 ML ONE ×2 (07:03→12:08)
[2018-06-05] MEDS ORDERED: NORMOSOL R SOLN(*) 1000 ML BAG 1,000 ML IV PRN (11:00)
[2018-06-05] MEDS ORDERED: LIDOCAINE/SOD BICARB 8.4% SYR ID ONE (11:00)
[2018-06-05 11:24] VITALS: BP 159/95
[2018-06-05 13:12] VITALS: BP 117/61
[2018-06-05 13:45] VITALS: BP 135/80
[2018-06-05 14:12] VITALS: BP 132/91
[2018-06-05 14:14] VITALS: BP 123/86
[2018-06-05] MEDS ORDERED: NYST100016 PO (14:16)
[2018-06-05] MEDS ORDERED: PANT40TA65 PO (14:16)
--- NOTE | 2018-06-05 14:20 | Short(Outpt) Discharge Summary ---
Discharge Summary Reason for Hosp/Final Diag: (1) GERD (gastroesophageal reflux disease) Status: Acute Hospital Course & Plan: EGD with biopsies completed without problems, suspect esophageal candidiasis. Colonoscopy completed without problems. 2 small and 3 large polyps removed. (2) Diarrhea Status: Chronic (3) Nausea Status: Chronic (4) Unintentional weight loss Status: Chronic Departure Discharge to: Home, Self Care Discharge Instructions Home Meds Active Scripts Nystatin (Nystatin) 100,000 Unit/Ml Oral.susp, 5 ML PO QID, #300 ML 0 Refills Prov:BRYSON GOMEZ MD 06/05/18 Pantoprazole Sodium (PANTOPRAZOLE SODIUM) 40 Mg Tablet.dr, 1 TAB PO DAILY, #60 TAB 6 Refills Take 1 tablet every morning on an empty stomach and wait 30 minutes before eating. Prov:BRYSON GOMEZ MD 06/05/18 Meloxicam (MELOXICAM) 15 Mg Tablet, 1 TAB PO QDAY, #90 TAB 3 Refills Prov:SANTOS KING MD 03/23/14 Reported Medications Vit A/C/E/Zinc/Selenium/Copper (Vision Formula Tablet) 1,000-60-30 Tablet, 1 TAB PO 05/29/18 Spironolactone (SPIRONOLACTONE) 25 Mg Tablet, 50 MG PO QDAY, TAB 03/13/18 Discontinued Scripts Ondansetron 4 Mg Odt (ONDANSETRON 4 MG ODT) 4 Mg Tab.rapdis, 4 MG PO Q6H PRN for NAUSEA/VOMITING, #20 TAB Prov:JERILYN EDUARDO 05/15/18 Diet: Regular Activity: As Tolerated Special Instructions: Your upper endoscopy was completed without problems. Your esophagus is very inflamed and I suspect has a yeast infection. I am prescribing pantoprazole, which is a medication that decreases acid secretion, that you should take on tablet every morning on an empty stomach and wait 30 minutes before eating. I am also prescribing an antifungal liquid for you that you should drink 5mL 4 times each day. Your colonoscopy was also completed without problems and your prep was excellent (Good Job!!). I removed 5 polyps from your colon, including 3 large polyps. My office will call you in the next couple of days to schedule a follow up appointment to see me back in my office to discuss all of these results with you and see how you're feeling. Problem Qualifiers (1) GERD (gastroesophageal reflux disease): Esophagitis presence: with esophagitis Qualified Codes: K21.0 - Gastro-eso phageal reflux disease with esophagitis BRYSON GOMEZ MD Jun 05, 2018 14:20
--- NOTE | 2018-06-05 14:52 | NUR ---
1312 PT ARRIVED TO DC VIA CART, SBAR FROM Shahid PANG RN AND DR. LEARY. VSS, PT IN L LATERAL POSITION, AWAKE. DENIES PAIN OR NAUSEA, SON, TRISH, AT BEDSIDE. HEART SOUNDS REMAIN DISTANT, HYPERACTIVE BS 1315 PT SEATED AT BEDSIDE TO USE URINAL, NO OUTPUT. TURNED DOWN TO 1L NC 1330 VSS, IN SF POSITION 1345 D/C IV TUBING, LAST 50ML IN, SALINE LOCKED IV 1400 PT RESTING, DECLINES FOOD/DRINK, WAITING TO SPEAK WITH DR. GOMEZ 1412 PT WOULD LIKE TO USE RESTROOM, ORTHOSTATICS STABLE, PT DENIES DIZZINESS. HELPED TO BATHROOM, UNABLE TO VOID. PT C/O PAIN TO R ARM. 'SOMETHING POPPED' YESTERDAY WHEN OPENING GATORADE BOTTLE. WEAKENED STRENGTH NOTED IN R ARM, ABLE TO FLEX, EXTEND, AND ROTATE R ARM EXPECTED. 1420 PT ALLOWED TO DRESS, OK TO LEAVE WITHOUT SPEAKING WITH DR. GOMEZ. 1430 REASSESSED, UNCHANGED. 1435 IV OUT, D/C INSTRUCTIONS COVERED. 1445 PT OUT TO SON'S VEHICLE OUTSIDE OF PT ADMITTING, DECLINED WC TRANSFER, SLOW MOVING, BUT WALKED TO CAR AND SELF TRANSFERRED TO HIGH SITTING TRUCK WITHOUT INCIDENT. ALL BELONGINGS WITH PT.
== END 2018-06-05 14:45 | disposition home or self-care (01) ==
LOC: OR 01:15
PROVIDERS: ATTEND Surgery
DX: D12.0 Benign neoplasm of cecum (principal); D12.5 Benign neoplasm of sigmoid colon; D12.3 Benign neoplasm of transverse colon; K20.9 Esophagitis, unspecified; K29.80 Duodenitis without bleeding
CPT/HCPCS: 00813; 43239; 45385; 83516; 85651; 86140; 87077; 88305; 88313; J2704

== ENCOUNTER → 2018-06-21 | Outpatient (CLI) | payer MEDICARE ==
[~2018-06-21] MED LIST changes: +BARIUM SULFATE 600 ML SUSP ONE; +NYST100016 PO; +PANT40TA65 PO
--- NOTE | 2018-06-21 15:42 | RADIOLOGY IMAGING REPORT ---
FACILITY: [facility] - [place] PATIENT NAME: Gabriel Soto : 1935 MR: [id number] V: [id number] EXAM DATE: ORDERING PHYSICIAN: BRYSON GOMEZ TECHNOLOGIST: Location: [facility] - [place] Patient: Gabriel Soto : 1935 Visit/Account:[id number] Date of Sevice: 06/21/2018 Exam type: XR SMALL BOWEL SERIES History: Diarrhea x3 months Comparison: None. Findings: The patient received oral barium suspension. Multiple sequential images were obtained through the ab domen demonstrating passage of the barium through the normal-appearing small bowel to the unremarkabl e terminal ileum. Transit time to the right-sided colon was 2.5 hours. No mucosal abnormality was i dentified within the small bowel. There is no evidence of extrinsic mass effect or bowel dilatation. Fluoroscopy was not utilized. IMPRESSION: 1. Unremarkable small bowel follow-through Report Dictated By: Miya Melton MD at 06/21/2018 3:36 PM Report E-Signed By: Miya Melton MD at 06/21/2018 3:38 PM WSN:[id number]
== END ==
LOC: RAD 06-06 01:02
PROVIDERS: ATTEND Surgery
DX: R19.7 Diarrhea, unspecified (principal); R11.0 Nausea; R63.4 Abnormal weight loss
CPT/HCPCS: 74250